=== PATIENT | female | born 1950 | race Caucasian/White ===

== ENCOUNTER 2017-10-06 11:41 | Outpatient (CLI) | payer MEDICARE, MEDICAID ==
--- NOTE | 2017-10-06 14:44 | Diagnostic Imaging Report ---
Ultrasound of the bilateral breasts HISTORY: Screening COMPARISON: No mammography is available Technique: Sonography of the bilateral breasts was performed in multiple planes. FINDINGS: Exam is limited due to body habitus. Exam of the right side demonstrates glandular fatty breast tissue with no discrete focal lesions identified Exam of the left side demonstrates glandular and fatty breast tissue with no discrete focal lesions identified. IMPRESSION: Limited exam due to body habitus. No discrete focal lesions by ultrasound,, however further assessment with mammography is also recommended. BI-RADS 0, mammography is recommended for further assessment. Note that a clinically suspicious breast abnormality should not preclude sonographic findings.
== END 2017-10-06 13:26 ==
LOC: RAD 11:41
DX: Z00.01 Encounter for general adult medical examination with abnormal findings (principal)
CPT/HCPCS: 76641